=== PATIENT | female | born 1985 | race African-American/Black ===

== ENCOUNTER 2018-05-20 09:14 | Emergency (ER) | payer OTHER ==
[~2018-05-20] VITALS: Ht 160 cm; Wt 90.7 kg
[2018-05-20 13:30] VITALS: BP 156/92
== END 2018-05-20 13:30 | disposition home or self-care (01) ==
LOC: ER 09:14
DX: S09.8XXA Other specified injuries of head, initial encounter (principal); M79.642 Pain in left hand; M79.645 Pain in left finger(s); V89.2XXA Person injured in unspecified motor-vehicle accident, traffic, initial encounter; Y93.89 Activity, other specified; Y92.89 Other specified places as the place of occurrence of the external cause; Y99.8 Other external cause status

== ENCOUNTER 2019-03-13 19:53 | Emergency (ER) | payer OTHER ==
[~2019-03-13] VITALS: Ht 160 cm; Wt 85.7 kg
[2019-03-13 20:12] LABS: URINE BILIRUBIN NEGATIVE (Negative); URINE BLOOD NEGATIVE (Negative); URINE CLARITY CLEAR; URINE COLOR YELLOW; URINE GLUCOSE-RANDOM* NEGATIVE (Negative); URINE KETONES NEGATIVE (Negative); URINE LEUKOCYTES-REFLEX NEGATIVE (Negative); URINE NITRITE-REFLEX NEGATIVE (Negative); URINE PROTEIN (DIPSTICK) NEGATIVE (Negative); URINE SPECIFIC GRAVITY >= 1.030 (1.005-1.035); URINE UROBILINOGEN 0.2 E.U./dl (0.2-1.0)
[2019-03-13 20:59] VITALS: BP 132/93
== END 2019-03-13 21:00 | disposition home or self-care (01) ==
LOC: ER 19:53
PROVIDERS: Physician Assistant
DX: N89.8 Other specified noninflammatory disorders of vagina (principal); I10 Essential (primary) hypertension

== ENCOUNTER 2019-04-20 15:22 | Emergency (ER) | payer OTHER ==
[~2019-04-20] VITALS: Ht 160 cm; Wt 88.5 kg
[2019-04-20] MEDS ORDERED: TRIAMTERENE-HC1 EAC2 PO (16:04)
[2019-04-20 16:40] LABS: URINE BILIRUBIN NEGATIVE (Negative); URINE BLOOD NEGATIVE (Negative); URINE CLARITY CLEAR; URINE COLOR YELLOW; URINE GLUCOSE-RANDOM* NEGATIVE (Negative); URINE KETONES 1+ (Negative); URINE LEUKOCYTES-REFLEX NEGATIVE (Negative); URINE NITRITE-REFLEX NEGATIVE (Negative); URINE PROTEIN (DIPSTICK) NEGATIVE (Negative); URINE SPECIFIC GRAVITY >= 1.030 (1.005-1.035); URINE UROBILINOGEN 0.2 E.U./dl (0.2-1.0)
[2019-04-20 16:57] LABS: BASOPHILS 0.9 % (0.0-2.0); EOSINOPHILS 1.5 % (0.0-3.0); HEMATOCRIT 45.7 % (37.0-47.0); LYMPHOCYTES 44.1 % (24.0-44.0); MCH 27.6 pg (26.0-34.0); MCHC 32.9 g/dL (28.0-37.0); MONOCYTES 6.5 % (1.0-8.0); PLATELET COUNT 399 thou/uL (150-400); RBC 5.44 mil/uL (4.20-5.00); RDW 12.6 % (10.5-14.5); WBC 10.6 thou/uL (4.0-11.0)
[2019-04-20 17:03] LABS: CALCIUM 9.9 mg/dL (8.5-10.1); CREATININE 0.9 mg/dL (0.6-1.0); POTASSIUM 3.4 mmol/L (3.5-5.1)
[2019-04-20 17:08] LABS: ALBUMIN 4.3 g/dL (3.4-5.0); TOTAL BILIRUBIN 0.7 mg/dL (<0.1-1.0); TOTAL PROTEIN 9.5 g/dL (6.4-8.2)
[2019-04-20] MEDS ORDERED: FLAGYL500 M1 PO (17:58)
[2019-04-20] MEDS ORDERED: NAPROSYN500 MG PO (17:58)
[2019-04-20 18:14] VITALS: BP 119/72
== END 2019-04-20 18:10 | disposition home or self-care (01) ==
LOC: ER 15:22
PROVIDERS: Physician Assistant
DX: N76.0 Acute vaginitis (principal); R10.2 Pelvic and perineal pain; I10 Essential (primary) hypertension